=== PATIENT | male | born 1965 | race Caucasian/White ===

== ENCOUNTER 2017-01-04 12:00 | Inpatient (IN) ==
[2017-01-04] MEDS ORDERED: Oxycodone *IR* 5 MG TABLET PO PRN (14:57)
[2017-01-04] MEDS ORDERED: BISACODYL 10 MG SUPPOSITORY RECTALLY PRN (14:57)
--- NOTE | 2017-01-04 15:36 | IRU History & Physical Report ---
HPI IRU Date: Chief complaint: I'm weak HPI: Mr. Pruitt is a 51-year-old white male from [facility]. Referring physician is Dr. John Arndt and his primary care doctor is Dr. Sky Munoz in [place]. His , So, is present in the room during the entire interview and examination. He experienced a respiratory illness on or about 12/13/2016. This consisted of a cough with thick but clear sputum. He had a temperature 100.5 degrees as well as generalized malaise. He was diagnosed with bronchitis and also received an influenza vaccine that day. Over the next several days he continued to feel bad in general. I am not certain if he receive an antibiotic initially or not. Subsequently on 12/20/2016 he felt like his hands were going to sleep. Has a long history of what appears to be carpal tunnel syndrome bilaterally for about 30 years. For this reason he was not too alarmed. The next day on December 21, 2916 he got out of the bed and had the sensation of his feet being numb or tingly. In addition he noted that his tongue was going numb. He did go to work but he continued to have worsening symptoms of numbness and tingling particularly in his tongue and facial area. He then went to his primary care doctor on December 22. He underwent a physical exam and his reflexes were noted to be very good at that time. Seemed to have adequate strength. He was started on an anti-inflammatory medication. Blood work was done demonstrating predominantly elevated liver enzymes but was otherwise normal. On December 23 he was no better. He contacted the nurse to let her know and to check on the lab results. On Tuesday he was moving very slowly and was quite weak. Arrangements were made for a direct admission to medical intensive care unit at [facility] on that date. He was stumbling and had very poor motor control at that time. He did not have any respiratory symptoms at that time with regard to shortness of breath. He was seen by neurology at [place] and differential considerations included Guillain-Vizcaino syndrome, cervical cord lesion or multiple sclerosis. He underwent several procedures including lumbar puncture demonstrating an opening pressure of 13 cm water pressure. The fluid was clear. Gram stain and culture were negative. CSF protein was markedly elevated at 156 and glucose was normal at 72. It is noted that his symptoms seemed to start in the upper extremities prior to the lower extremities. MRI of cervical cord showed degenerative changes only. MRI of brain revealed some chronic ischemic changes. He was diagnosed with brachial pharyngeal Guillain-Vizcaino syndrome. He was treated with 5 days of IVIG completing that on December 29. His blood pressure was elevated. He was started on a low-dose of carvedilol which was subsequently increased. He has had some degree of orthostatic hypotension as well in [place]. Other investigations including a serum protein electrophoresis and urine protein electrophoresis in view of elevated globulins. I do not see results of that in the record from [facility]. He also had a low vitamin D level. At it's worse, he had extremely poor sensation in his mouth and felt like everything he was eating tasted like dirty ocean water. His tongue numbness has improved and is now just present at the tip of the tongue. Also at the worst time, his entire face was "paralyzed." Had normal sensation in his cheeks but simply had poor motor control of his face bilaterally. Left side improved and the right one continues to be weak. In addition, he has had lower extremity weakness, left worse than right in particular he reports reduced dorsiflexion at the ankles compared to plantar flexion. Continues to have subjective feeling of numbness from his knees on down bilaterally. It is noted that he has not been able to completely close his right eye adequately. Initially he could not close either eye but now it is just the right side. While he was receiving his IVIG and IV fluids he had frequency of urination and did not feel like he was emptying out completely. That sensation has resolved. He did have presence of elevated liver transaminases. Sonogram of the liver showed steatosis and sludge in the gallbladder lumen. No stones were seen. Hepatitis B surface antigen, hepatitis A IgM, hepatitis B core antibody and hepatitis C were all negative. HIV was negative as well. He lives at home with his . He does have 2 steps to get into his house. He does not use an assistive device at home prior to this event. Level of functioning prior to the event indicates that he was independent in all parameters. Current level of functioning is as follows: He is supervision level for eating and grooming as well as upper and lower body dressing. Requires minimum assistance for bathing. Requires minimum assistance for toileting. Requires minimum assistance for walking with a rolling walker 200 feet. Requires maximum assistance for stairs. The patient must look at his feet to ambulate adequately. He is using a front-wheeled walker with contact guard assistance but reports that most of his body which is supported by his upper extremities due to numbness in the lower extremities. Left leg and foot is weaker than the right side. The following medical conditions are noted and require active monitoring and/or management: 1. Residual from Guillain-Vizcaino syndrome resulting in high fall risk and risk of urinary retention and respiratory compromise. 2. New diagnosis of labile hypertension with history of orthostatic hypotension. The following therapies will be needed: 1. Physical therapy: for transfers and ambulation and stairs. 2. Occupational therapy: for ADL's and transfers. 3. Medical management: for the above conditions. 4. 24 hour Rehabilitation Nursing to monitor and address the following: Fall risk, monitor blood pressures including orthostatic hypotension, monitor respiratory status 5. Speech therapy eval to assess swallowing PFSH Patient Stated Medical History Constipation No Hx Incontinence No Chemotherapy Yes Other [place] Medical History Updates: Clinical history of bilat carpal tunnel syndrome ( unconfirmed by NCT's). Hyperlipidemia. Benign essential hypertension. Elevated transaminases - ? fatty infiltration of liver Surgical History: 1. Appendectomy 1999. 2. Vasectomy 1998. 3. Third molar extractions Family History: Father is living at age 87. He has history of skin cancer. Has a sister 2 years older with skin cancer. Another sister is 58 years old with thyroid disease, possibly treated with radiation. Another brother has psoriatic arthritis, obesity and hypertension. Patient's mother at age 69 and had rheumatoid arthritis, diabetes and hypertension. 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 He does have children. He is currently employed by [employer]. Review of Systems - Constitutional Constitutional: Present: anorexia (had abnormal taste with resultant anorexia. That is improved.), fever(s) (history of temperature 100.5 with bronchitis.), night sweats, weight loss (he has lost about 20 pounds since admission on 2016). Absent: chills, fatigue, headache(s), lethargy, malaise, weakness, weight gain - EEGAT Eyes: Present: other (has been unable to close right eye completely since this illness. Left eye is improved.). Absent: blurry vision, change in vision, diplopia, photophobia Ears: Present: tinnitus (high-pitched tinnitus noted.) Nose: Present: allergies Mouth/Throat: Present: other (has had numbness of the tongue as well as abnormal sensation on the tongue. Both are improving.). Absent: changes in swallowing, painful swallowing, change in taste, bleeding gums, change in voice - Cardiovascular Cardiovascular: Absent: chest pain, palpitations, syncope, dyspnea on exertion, orthopnea, edema, cyanosis, heart murmur Rhythm: Present: regular rhythm Vascular: Absent: intermittent claudication, pedal edema, unilateral swelling - Respiratory Respiratory: Present: cough (most of his cough has resolved since the bronchitis has resolved.). Absent: dyspnea, hemoptysis, dyspnea on exertion, wheezing, pain on inspiration, chest congestion, excessive phlegm production - Gastrointestinal Gastrointestinal: Present: dyspepsia, nausea (did experience dry heaves with bronchitis.). Absent: abdominal pain, change in bowel habits, constipation, diarrhea, dysphagia, early satiety, hematochezia, melena, vomiting - Genitourinary Genitourinary: Present: urinary frequency (during time of IV fluids.) - Musculoskeletal Musculoskeletal: Present: abnormal gait, muscle weakness (left lower extremity worse than right. Right facial droop worse than left.). Absent: arthralgias, back pain, joint swelling, limited range of motion - Integumentary/Breasts Integumentary: Present: other (patch of psoriasis on back and behind ear). Absent: alopecia, erythema, lesions, pruritus, rash, jaundice - Neurological Neurological: Present: burning sensations, focal weakness (right face, left lower extremity), numbness, paresthesias, weakness. Absent: abnormal gait, abnormal movements, abnormal speech, confusion, convulsions, dizziness, frequent falls, headache(s), loss of vision, memory loss, tremor(s) - Psychiatric Psychiatric: Absent: abnormal sleep pattern, anxiety, depression - Endocrine Endocrine: Absent: cold intolerance, flushing, heat intolerance, palpitations - Hematologic/Lymphatic Hematologic/Lymphatic: Absent: easy bleeding, easy bruising, lymphadenopathy - Allergic/Immunologic Allergic/Immunologic: Absent: urticaria Medications Home Medications Medication Instructions Recorded Confirmed Type Acetaminophen [Tylenol] 650 mg PO Q4H PRN 01/04/17 01/04/17 History Bisacodyl Supp [Dulcolax] 10 mg RECTALLY Q6H PRN 01/04/17 01/04/17 History Carvedilol [Coreg] 1 tab PO BIDWM 01/04/17 01/04/17 History Cholecalciferol (Vitamin D3) 1 cap PO DAILY 01/04/17 01/04/17 History [Vitamin D3] Famotidine [Pepcid] 1 tab PO BID 01/04/17 01/04/17 History Gabapentin [Neurontin] 1 cap PO TID 01/04/17 01/04/17 History Lactulose Oral Liq [Lactulose] 20 gm PO BID 01/04/17 01/04/17 History Oxycodone *IR* [Roxicodone *Ir*] 5 mg PO Q4H PRN 01/04/17 01/04/17 History Allergies Allergy/AdvReac Type Severity Reaction Status Date / Time No Known Allergies Allergy Verified 01/04/17 14:45 Results IRU - Labs Labs: Extensive review of outside records was undertaken. Exam Vital Signs: Temperature 98.4 F 01/04/17 12:41 Pulse Rate 104 H 01/04/17 12:41 Respiratory Rate 20 01/04/17 12:41 Blood Pressure 149/108 H 01/04/17 12:41 Pulse Oximetry 95 01/04/17 12:41 Height/Weight/BMI: Height 1.83 m Weight 122.8 kg - Constitutional Present: no acute distress, well nourished, well developed, obese, cooperative - Routine HEENT Exam Head: Present: normocephalic, atraumatic. Absent: cushingoid faces, abrasion, laceration, hematoma Eye: Present: PERRL. Absent: EOMI (seems to have disconjugate gaze upon testing of extraocular muscles. However denies diplopia. In particular right eye seems to lag left eye on lateral gaze to the right.), conjunctival icterus, scleral injection, periorbital swelling, nystagmus ENT: Present: mucous membranes moist, oropharynx clear - Routine Neck Exam Present: supple, full ROM, trachea midline. Absent: lymphadenopathy, thyromegaly, tenderness, swelling - Routine Chest/Breast/Axilla Exam Chest wall: Absent: tenderness, mass Axillae: Absent: lymphadenopathy, mass - Routine Respiratory Exam Present: CTA bilaterally. Absent: accessory muscle use, decreased breath sounds , prolonged expiratory phase, rales, respiratory distress, rhonchi, stridor, wheezes, crackles, distant breath sounds - Routine Cardiovascular Exam Present: RRR, S1, S2, no murmur. Absent: gallop, S3, S4, click, irregular rhythm - Routine Abdominal Exam Present: soft, normoactive bowel sounds, non distended, non tender. Absent: rebound, guarding, firm, rigid, organomegaly, mass, hernia, wound - Routine Extremities Exam Present: no edema, non tender, pulses intact, normal capillary refill. Absent: cyanosis, clubbing - Routine Back/Spine/Pelvis Exam Back/Spine: Present: full ROM. Absent: scoliosis, kyphosis - Routine Skin Exam Present: intact, dry, warm, rash (psoriatic rash on back and behind ear). Absent: cyanosis, erythema, pallor, mottling, petechiae, urticaria, lesions, jaundice - Routine Neurological Exam Present: alert, oriented X3, CN II-XII intact, motor deficit (slightly reduced dorsiflexion left ankle compared to right. Slightly reduced flexion and left hip compared to right.), moving all extremities, facial asymmetry (right facial droop worse than left. Right eye does not completely close.), normal speech Pinprick exam appears to be normal bilaterally in the upper and lower extremities. Upper extremity strength appears to be normal. - Routine Psychiatric Exam Present: normal affect, normal thought process, cooperative, good insight, good judgment. Absent: depressed, anxious Sepsis Assessment - Evaluation Confirmed Suspected Infection: No SIRS Criteria: none IRU A/P (1) Guillain-Melville syndrome Current visit: Yes Status: Acute Patient has significant residual deficits from his recently diagnosed Guillain- Vizcaino syndrome. He is at risk for falls as well as skin breakdown from immobility, at risk for respiratory decline as well. He will be monitored carefully and a multidisciplinary approach will be undertaken for his recovery. (2) Labile hypertension Current visit: Yes Status: Acute He was recently started on carvedilol. His dose has been increased in [place]. He is at risk for further hypertension or episodes of hypotension which are reported from [place]. DVT Prophylaxis: SCD's, Lovenox Resuscitation Status: Full Code - Course Hospital Course: Tho Wilkins MD: - Interventions to Obtain Goals PT Treatment Plan: Balance/Proprioception, Functional Activities, Gait Training , Patient/Family Education OT Treatment Plan: ADL (Basic Care), Balance Training, Pt./Family Education Goals Progress/Modifications: A multidisciplinary approach will be undertaken for this patient. He'll be seen by physical therapy, occupational therapy and speech therapy for an assessment. He requires 24 rehabilitation nursing to monitor his respiratory status, neurologic status and blood pressures. He will require medical supervision.
[2017-01-04] MEDS: GABAPENTIN 300 MG CAPSULE PO SCH ×2 (16:05→21:14)
--- NOTE | 2017-01-04 16:20 | Consult Note ---
<Mary Zuñiga V - Last Filed: 01/04/17 16:54> Consult Information - Data of Consult Consult date: 01/04/17 Requesting Physician: Tho Wilkins MD Primary Care Provider: Sky Munoz MD Family Provider: Sky Munoz MD - Consult Narrative Reason for consult: Medical manaement HTN, GB History of present illness: Patient is a pleasant 51-year-old male who was recently diagnosed with Kavitha Vizcaino syndrome. Patient initially developed an upper respiratory infection and was seen by his primary care provider on December 13. On 12/20, he began to have numbness in his hands. ON tuesdayDecember 21 he selt numbness and tingling in his bilateral feet. Throughout that day he noticed tingling in his tongue and face. On 12/22/16, he was evaluated by PCP again and noted that refluxes were normal at that time. He had laboratory studies obtained and was started on anti-inflammatory medications. Labs did reveal transaminitis. Throughout 12/23 and 12/24 he continued to feel weak and symptoms did not change and he contacted primary care's office. At that time he was having difficulty with ambulation. Arrangements were made and patient was directly admitted to [facility] ICU for further evaluation and treatment. On December 25 the following work up was performed- MRI of the brain and cervical spine on 12/25 which did reveal degenerative disc disease with moderate neuroforaminal and spinal stenosis. Spinal tap revealing normal opening pressure at 13. Gram stain and culture were negative, CSF protein was elevated at 156 and glucose was normal at 72. Given transaminitis a liver sonogram also was obtained that did show sludge in the gallbladder as well as hepatic steatosis Unfortunately he was diagnosed with brachial pharyngeal Phelps Vizcaino syndrome and underwent 5 day treatment of IVIG from 12/25 through 12/29. He is also been noted to have hypertension throughout this hospital stay and was started on Coreg. [facility] Patient Stated Medical History Brachial pharyngeal Guillain-Vizcaino syndrome Hypertension Hypercholesterolemia Obesity- patient weighed 290 LBS at the beginning of December Medical History Updates: Patient did receive flu vaccine on 12/13/16 Surgical History: Appendectomy. Colonoscopy. Vasectomy Family History: Father-history of skin cancer Mother history of rheumatoid arthritis - Social History Smoking status: Never smoker Substance use type: does not use Alcohol intake frequency: does not drink Housing: house Household members: spouse Current occupational status: employed ([employer]) Social history: Patient is and resides independently at home with . He does have children. He is currently employed by [employer]. Review of Systems All systems PM: 10-point ROS was reviewed, no additional remarkable complaints except - EENMT EENMT Comments: Slurred speech Mild numbness to tip of tongue - Gastrointestinal Gastrointestinal: Present: constipation - Neurological Neurological: Present: numbness (bilateral hand numbness, bilateral lower extremity numbness distally to the knees.), weakness Medications Home Medications Medication Instructions Recorded Confirmed Type Acetaminophen [Tylenol] 650 mg PO Q4H PRN 01/04/17 01/04/17 History Bisacodyl Supp [Dulcolax] 10 mg RECTALLY Q6H PRN 01/04/17 01/04/17 History Carvedilol [Coreg] 1 tab PO BIDWM 01/04/17 01/04/17 History Cholecalciferol (Vitamin D3) 1 cap PO DAILY 01/04/17 01/04/17 History [Vitamin D3] Famotidine [Pepcid] 1 tab PO BID 01/04/17 01/04/17 History Gabapentin [Neurontin] 1 cap PO TID 01/04/17 01/04/17 History Lactulose Oral Liq [Lactulose] 20 gm PO BID 01/04/17 01/04/17 History Oxycodone *IR* [Roxicodone *Ir*] 5 mg PO Q4H PRN 01/04/17 01/04/17 History Allergies Allergy/AdvReac Type Severity Reaction Status Date / Time No Known Allergies Allergy Verified 01/04/17 14:45 Exam Vital Signs: Temperature 98.4 F 01/04/17 12:41 Pulse Rate 104 H 01/04/17 12:41 Respiratory Rate 20 01/04/17 12:41 Blood Pressure 149/108 H 01/04/17 12:41 Pulse Oximetry 95 01/04/17 12:41 Height/Weight/BMI: Height 1.83 m Weight 122.8 kg - Constitutional Present: no acute distress, well nourished, well developed - Routine HEENT Exam Eye: Present: EOMI ENT: Present: mucous membranes moist, dentition normal - Routine Neck Exam Present: full ROM - Routine Respiratory Exam Present: CTA bilaterally. Absent: wheezes - Routine Cardiovascular Exam Present: RRR, S1, S2. Absent: murmur - Routine Abdominal Exam Present: soft, normoactive bowel sounds, non distended. Absent: tenderness - Routine Extremities Exam Present: pulses intact, normal capillary refill - Routine Back/Spine/Pelvis Exam Back/Spine: Present: full ROM - Routine Skin Exam Present: intact, dry, warm - Routine Neurological Exam Present: alert, oriented X3, moving all extremities, vision grossly intact, hearing grossly intact, facial asymmetry Deep tendon reflexes are absent in all 4 extremities - Detailed Neurological Exam Cranial nerves: Normal CN II, Normal CN III, Normal CN IV, Normal CN , Normal CN VIII, Normal CN X (? change in swallow), Normal CN XI, Normal CN XII, Abnormal CN V (Right eye unable to close completely), Abnormal CN VII (Change in taste), Abnormal CN IX (abnormal taste, tongue numbness) Speech: Present: slurred Neuro motor strength exam: RLE 4/5 (bilateral lower extremity strength 4-4), RUE 5/5 (bilateral upper extremity strength 5 out of 5) Sensory: Normal LE 2-point discrimination, Normal lower extremity light touch, Normal lower extremity temperature, Normal UE 2-point discrimination, Normal upper extremity light touch, Normal upper extremity temperature Comments: Patient can distinguish 2 point discrimination to bilateral lower extremities and this does not change distally. Patient feels bilateral lower extremity numbness below the knees, however, does have sensation to light touch. BLE strength equal. - Routine Psychiatric Exam Present: normal affect, cooperative Assessment and Plan (1) Guillain-[place] syndrome Current visit: Yes Status: Acute Assessment and Plan: Impression Brachial pharyngeal Kathryn Vizcaino syndrome S/P- IVIG x5 days Facial muscular nerve with alteration to sensation Persistent weakness Bilateral hands and bilateral distal lower extremity numbness Hypertension Hypercholesterolemia Obesity-recent 20 pound weight loss in the past month Plan Agree with admission to IRU under the care of Dr. Wilkins for ongoing therapy, and strengthening. Medically, we will continue to monitor blood pressure and continue on Coreg 3.125 milligrams twice a day. Patient did have hypertension during his acute medical admission. Continue with Neurontin 300 milligrams 3 times a day to help with neuropathy/ numbness Patient has had difficulty with constipation, continue to utilize lactulose twice a day, and Dulcolax suppositories as needed Lacrilube eye ointment scheduled at at bedtime. Patient does continue to have nonfocal closure of the right eye unless he manually closes it. Recommend utilizing eye moisturizing as needed. Consultations with speech for swallow evaluation. Patient does have some slurred speech on examination along with continued numbness to the tip of this tongue. He continues to have diminished taste. We'll continue to utilize Pepcid twice a day as patient did feel some reflux type sensation Consulted with PT and OT for ongoing strengthening to work on improved function of all 4 extremities. Lovenox subcutaneous daily for DVT prophylaxis Hospital services will continue to follow patient and medical management. His existing comorbidities. At time of discharge medical care will return to his primary care provider. Dr. Sky Munoz in [place] 45 minutes time spent on examination, plan, discussion with Dr Wilkins and attending. Hospital Course Summary Disclaimer: The visit summary below is not to be considered part of the above Progress Note. Hospital Course: 01/04/17 Impression Brachial pharyngeal Kathryn Vizcaino syndrome S/P- IVIG x5 days Facial muscular nerve with alteration to sensation Persistent weakness Bilateral hands and bilateral distal lower extremity numbness Hypertension Hypercholesterolemia Obesity-recent 20 pound weight loss in the past month Plan Agree with admission to IRU under the care of Dr. Wilkins for ongoing therapy, and strengthening. Medically, we will continue to monitor blood pressure and continue on Coreg 3.125 milligrams twice a day. Patient did have hypertension during his acute medical admission. Continue with Neurontin 300 milligrams 3 times a day to help with neuropathy/ numbness Patient has had difficulty with constipation, continue to utilize lactulose twice a day, and Dulcolax suppositories as needed Lacrilube eye ointment scheduled at at bedtime. Patient does continue to have nonfocal closure of the right eye unless he manually closes it. Recommend utilizing eye moisturizing as needed. Consultations with speech for swallow evaluation. Patient does have some slurred speech on examination along with continued numbness to the tip of this tongue. He continues to have diminished taste. We'll continue to utilize Pepcid twice a day as patient did feel some reflux type sensation Consulted with PT and OT for ongoing strengthening to work on improved function of all 4 extremities. Lovenox subcutaneous daily for DVT prophylaxis Hospital services will continue to follow patient and medical management. His existing comorbidities. At time of discharge medical care will return to his primary care provider. Dr. Sky Munoz in [place] 45 minutes time spent on examination, plan, discussion with Dr Wilkins and attending. 01/04/17 16:55 <Jaqueline Walker - Last Filed: 01/04/17 21:21> Consult Information - Data of Consult Requesting Physician: Tho Wilkins MD Primary Care Provider: Sky Munoz MD Family Provider: Sky Munoz MD [facility] Patient Stated Medical History Constipation No Hx Incontinence No Chemotherapy Yes Other [facility] Medical History Guillain-Wanblee syndrome (Acute Medical) Labile hypertension (Acute Medical) Exam Vital Signs: Temperature 98.6 F 01/04/17 16:41 Pulse Rate 99 01/04/17 21:08 Respiratory Rate 18 01/04/17 21:08 Blood Pressure 134/94 H 01/04/17 16:41 Pulse Oximetry 95 01/04/17 21:08 Height/Weight/BMI: Height 1.83 m Weight 122.8 kg Assessment and Plan (1) Guillain-[place]anblee syndrome Current visit: Yes Status: Acute Assessment and Plan: 01/04/2017-I reviewed this chart, the patient history, and the BOTTOM WHEELER's/PA's documented findings as above. We discussed and formulated the assessment and plan as above with the additions below.-Dr. Walker The patient was seen this evening in his room. He was recently diagnosed with Guillain Vizcaino Syndrome. He received IVIG. He was monitored by neurology during his stay at [place]. He developed numbness and weakness in his arms, legs, face and tongue. His numbness and weakness are now improving. He was always able to swallow fairly well. He never required intubation. He did require nocturnal oxygen for a couple of nights. He has not been using it recently. His does think he has sleep apnea and states that he snores very loudly and sometimes gasps for breath. He has never been evaluated for sleep apnea. He was recently diagnosed with elevated blood pressure with this recent illness. Prior to this time his blood pressure at been normal. He states he has had some constipation that did not improve with MiraLAX and has finally improved after lactulose. He states now he is to the point where he has had several loose stools today and would like to hold off on lactulose. On exam the patient is alert and in no acute distress. He has a mild slurred speech. HEENT reveals sclerae to be anicteric and pupils are equal. Oropharynx is moist. Neck is supple. Chest is clear to auscultation. Cardiovascular reveals a regular rate and rhythm. Abdomen is soft and nontender. Extremities are free of edema. Skin is warm and dry and without rashes. On neurologic exam he has difficulty completely closing his eye on the right. He has right facial droop at the mouth. Motor strength in the upper extremities is equal and 4+/5. Motor strength of lower extremities is equal and approximately 4/ 5. Impression and plan Regarding weakness and numbness secondary to Guillain Vizcaino Syndrome-agree with physical therapy and occupational therapy for strengthening. Recommend continuing speech therapy as well. We'll need to monitor closely to make sure her symptoms do not worsen. Agree with gabapentin for neuropathy. The patient states that he is to have a nerve conduction study in a couple of weeks. 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 Regarding possible sleep apnea, will check a nocturnal oximetry tonight. I would highly recommend he see a sleep specialist and have a sleep study after discharge. Regarding recent constipation and now with diarrhea, will change lactulose to when necessary. Will start once daily MiraLAX. Hospital Course Summary Disclaimer: The visit summary below is not to be considered part of the above Progress Note.
--- NOTE | 2017-01-04 17:16 | IRU 24Hr Post Admit Eval ---
24 Hr Post Admission Physical - Relevant Changes Relevant Changes: No Reviewed: I have reviewed the patient's information and concur with the finding and results of the pre-admission screen. Certification: I certify the patient for rehabilitation. - Patient Condition (1) Guillain-[place] syndrome Status: Acute Code(s): G61.0 - Guillain-[place] syndrome Classification: Present on IRF Admission, IRF Tx That Should Address Diagnosis, Diagnosis Requiring Medical Follow Up (2) Labile hypertension Status: Acute Code(s): I10 - Essential (primary) hypertension Classification: Present on IRF Admission, IRF Tx That Should Address Diagnosis, Diagnosis Requiring Medical Follow Up - Prior Functional Status Lives With: Spouse Residence Type: Apartment/Private Home Assitive Devices: None Prior Functional Status: Indep. at home or school, Used no assistive device - Current Functional Status Current Level of Function: Current level of functioning is as follows: He is supervision level for eating and grooming as well as upper and lower body dressing. Requires minimum assistance for bathing. Requires minimum assistance for toileting. Requires minimum assistance for walking with a rolling walker 200 feet. Requires maximum assistance for stairs. The patient must look at his feet to ambulate adequately. He is using a front-wheeled walker with contact guard assistance but reports that most of his body which is supported by his upper extremities due to numbness in the lower extremities. Left leg and foot is weaker than the right side. Failed Alternative Therapy: Arrived from Acute Care Patient Requirements: The patient requires oversight by rehabilitation physician to manage their rehabilitation treatment plan and multidisciplinary approach to care that can only be provided in an IRF and requires a multidisciplinary approach to care, provided by professional PTs, OTs, STs, dieticians, RTs, rehabilitation nurses and is not available in lesser levels of care. Limitations Req: Mobility Impairment, ADL Impairment, Limited Mobility Therapy: The patient is to receive therapy at least 5 days a week. Plan of Care Comment: Physical therapy: 75 minutes 3 days weekly, 90 minutes 2 days weekly. Occupational therapy: 75 minutes 3 days weekly, 90 minutes 2 days weekly. Speech therapy: 30 minutes 3 days weekly - Complications/Comorbidities Impact on Functional Outcomes: It is anticipated that he his muscle weakness from the Guillain-Vizcaino syndrome will negatively impact his functional outcome. Barriers to Discharge: Weakness, Balance, Endurance - Plan to Avoid Complications Plan to Avoid Complications: The patient cannot receive this care in a lesser intensive setting such as Shelter or Outpatient Therapy due to the patient requiring the following : This patient requires a multidisciplinary approach to include speech therapy, occupational therapy and physical therapy to allow him to return to his former level of functioning as rapidly as possible. He requires 24 rehabilitation nursing monitoring to avoid falls, monitor respiratory status and blood pressure. He requires medical supervision in view of his risk for decline from a neurologic standpoint.
[2017-01-04] MEDS: CARVEDILOL 3.125 MG TABLET PO SCH (17:26)
[2017-01-04] MEDS ORDERED: LACTULOSE 20 GM/30 ML ORAL LIQUID PO SCH (21:00)
[2017-01-04] MEDS ORDERED: LACTULOSE 20 GM/30 ML ORAL LIQUID PO PRN (21:13)
[2017-01-04] MEDS: FAMOTIDINE 20 MG TABLET PO SCH (21:14)
[2017-01-04] MEDS: LACRI-LUBE EYE OINT 3.5gm EACH EYE SCH (22:09)
[2017-01-05] MEDS: ENOXAPARIN 40 MG/0.4 ML INJECTION SQ SCH (08:17)
[2017-01-05] MEDS: POLYETHYL GLYCOL 3350 17gm PACKET PO SCH (08:17)
[2017-01-05] MEDS: FAMOTIDINE 20 MG TABLET PO SCH ×2 (08:18→20:08)
[2017-01-05] MEDS: CARVEDILOL 3.125 MG TABLET PO SCH ×2 (08:18→17:51)
[2017-01-05] MEDS: GABAPENTIN 300 MG CAPSULE PO SCH ×3 (08:18→20:08)
--- NOTE | 2017-01-05 11:22 | Progress Note ---
<So Alejandro - Last Filed: 01/05/17 11:19> - Date 01/05/17 Subjective: Patient seen in his room. He is feeling fine. Continues to have numbness from the knees down and from the wrists down. Tip of tongue feels numb. Taste is back to nl. No complaints at this time. Wants to continue to lose weight. He has been intentionally eating less and has lost 30#. Objective Vital signs: Temperature 98.6 F 01/05/17 08:00 Pulse Rate 106 H 01/05/17 09:02 Respiratory Rate 16 01/05/17 08:00 Blood Pressure 145/93 H 01/05/17 08:00 Pulse Oximetry 96 01/05/17 09:02 Height/Weight/BMI: Height 1.83 m Weight 122.8 kg - Constitutional Present: well nourished, well developed - Routine HEENT Exam Head: Present: normocephalic - Routine Respiratory Exam Present: CTA bilaterally. Absent: wheezes - Routine Cardiovascular Exam Present: RRR. Absent: murmur - Routine Abdominal Exam Present: soft, normoactive bowel sounds, non distended. Absent: tenderness - Routine Extremities Exam Present: no edema, normal capillary refill - Routine Skin Exam Present: dry, warm - Routine Neurological Exam Present: alert, oriented X3 paresthesia from knee down and from wrists down. R eye lid doesn't close completely and has mild droop to R side of mouth. Speech is mildly affected. - Routine Lymphatic Exam Lymphatic: Absent: adenopathy - Routine Psychiatric Exam Present: normal affect, cooperative Results - Labs CBC & Chem 7: 01/05/17 05:04 01/05/17 05:04 Assessment and Plan (1) Guillain-Lismore syndrome Current visit: Yes Status: Acute Assessment and Plan: Assessment Brachial pharyngeal Guillain Vizcaino syndrome S/P- IVIG x5 days Facial muscular nerve with alteration to sensation Persistent weakness Bilateral hands and bilateral distal lower extremity numbness Hypertension Hypercholesterolemia Obesity-recent 30 pound weight loss Fatty liver Plan His overnight oximetry was normal. He plans to f-u with neuro after d/c for EMG. He plans to f-u with GI re: fatty liver after d/c. Will continue to work on weight loss. Labs today were essentially normal. Hospital Course Summary Disclaimer: The visit summary below is not to be considered part of the above Progress Note. Hospital Course: 01/04/17 Impression Brachial pharyngeal Kathryn Vizcaino syndrome S/P- IVIG x5 days Facial muscular nerve with alteration to sensation Persistent weakness Bilateral hands and bilateral distal lower extremity numbness Hypertension Hypercholesterolemia Obesity-recent 20 pound weight loss in the past month Plan Agree with admission to IRU under the care of Dr. Wilkins for ongoing therapy, and strengthening. Medically, we will continue to monitor blood pressure and continue on Coreg 3.125 milligrams twice a day. Patient did have hypertension during his acute medical admission. Continue with Neurontin 300 milligrams 3 times a day to help with neuropathy/ numbness Patient has had difficulty with constipation, continue to utilize lactulose twice a day, and Dulcolax suppositories as needed Lacrilube eye ointment scheduled at at bedtime. Patient does continue to have nonfocal closure of the right eye unless he manually closes it. Recommend utilizing eye moisturizing as needed. Consultations with speech for swallow evaluation. Patient does have some slurred speech on examination along with continued numbness to the tip of this tongue. He continues to have diminished taste. We'll continue to utilize Pepcid twice a day as patient did feel some reflux type sensation Consulted with PT and OT for ongoing strengthening to work on improved function of all 4 extremities. Lovenox subcutaneous daily for DVT prophylaxis Hospital services will continue to follow patient and medical management. His existing comorbidities. At time of discharge medical care will return to his primary care provider. Dr. Sky Munoz in [place] 45 minutes time spent on examination, plan, discussion with Dr Wilkins and attending. 01/04/17 16:55 <Jaqueline Walker L - Last Filed: 01/05/17 19:39> - Date 01/05/17 Objective Vital signs: Temperature 98.0 F 01/05/17 15:07 Pulse Rate 91 01/05/17 15:07 Respiratory Rate 16 01/05/17 15:07 Blood Pressure 142/96 H 01/05/17 15:07 Pulse Oximetry 94 01/05/17 15:07 Height/Weight/BMI: Height 1.83 m Weight 121.6 kg Results - Labs CBC & Chem 7: 01/05/17 05:04 01/05/17 05:04 Assessment and Plan (1) Guillain-Lismore syndrome Current visit: Yes Status: Acute Assessment and Plan: 01/05/2017-I reviewed this chart, the patient history, and the JUDGE'S CLERK's/PA's documented findings as above. We discussed and formulated the assessment and plan as above with the additions below.-Dr. Walker Patient was seen this evening in his room. He was accompanied by his . He thinks his arm strength is getting better every day. His leg strength is improving as well. He has no new numbness. He is swallowing well. He is breathing well. He did not have a bowel movement today. On exam he is alert and in no acute distress. No change in neurologic exam. Chest is clear to auscultation. Cardio vascular reveals a regular rate and rhythm. Abdomen is soft and nontender. Extremities are free of edema. He has some mild folliculitis on both of his feet- Overnight oximetry revealed that he was less than 89% for at least 30 minutes. He had approximately 7.6 events per hour. Will start on 1 L per nasal cannula and check nocturnal oximetry again tonight. Impression and plan GBS is slowly improving. Continue with physical therapy. Neurologic symptoms are slowly improving. Probable obstructive sleep apnea. Start 1 L per nasal cannula at night. Check nocturnal oximetry again on 1 L. The patient will need a sleep study as an outpatient. Hospital Course Summary Disclaimer: The visit summary below is not to be considered part of the above Progress Note.
[2017-01-05] MEDS: LACRI-LUBE EYE OINT 3.5gm EACH EYE SCH (23:28)
[2017-01-06] MEDS: POLYETHYL GLYCOL 3350 17gm PACKET PO SCH (08:24)
[2017-01-06] MEDS: ENOXAPARIN 40 MG/0.4 ML INJECTION SQ SCH (08:24)
[2017-01-06] MEDS: FAMOTIDINE 20 MG TABLET PO SCH ×2 (08:24→22:06)
[2017-01-06] MEDS: CARVEDILOL 3.125 MG TABLET PO SCH (08:24)
[2017-01-06] MEDS: GABAPENTIN 300 MG CAPSULE PO SCH ×3 (10:00→22:06)
[2017-01-06] MEDS ORDERED: LACRI-LUBE EYE OINT 3.5gm RIGHT EYE SCH (13:44)
--- NOTE | 2017-01-06 13:48 | IRU Progress Note ---
- Subjective/Serverity of Illness Date: 01/06/17 Don is improving with regard to therapy. He has less knee locking as he walks. Formerly he was indicating he was bearing most of his weight on his arms and on the walker rather than on his legs. He states that has improved. He denies any chest pain. He reports his appetite is good. He has been seen by therapies. Speech therapy will continue to work with him with regard to strengthening and swallowing precautions etc. His blood pressures running a bit on the high side. He was started on carvedilol in [place] and remains on that at the present time. He remains on a low-dose and his pulse remains elevated at times. We'll increase this to 6.25 mg twice daily. Reports that he has not had a bowel movement since early on in his stay here. Has Dulcolax ordered as needed as well as MiraLAX on a regular basis. Also has lactulose twice daily as needed but he has not received that. We will make that scheduled twice daily.. Exam Vital Signs: Temperature 98.1 F 01/06/17 07:00 Pulse Rate 132 H 01/06/17 07:00 Respiratory Rate 18 01/06/17 07:00 Blood Pressure 143/102 H 01/06/17 07:00 Pulse Oximetry 99 01/06/17 07:00 Height/Weight/BMI: Height 1.83 m Weight 121.6 kg Comments: The patient is awake, alert and oriented and in no acute distress. Pupils are equal. The neck is supple. Chest: Clear to auscultation bilaterally. Cor: RR with no gallop, click nor murmur Abd: soft with normo-active bowel sounds. There are no masses, no tenderness and no guarding. Extremities: No edema is noted. Neurologic: Upper extremity strength appears to be very good. The specimen improvement in his right facial weakness and droop. Still cannot completely close his right eye. Can close the left eye and he would prefer not to use Lacri -Lube on the left side.. 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 He is being seen by speech therapy, physical therapy and occupational therapy. Improvement is noted. (2) Labile hypertension Current visit: Yes Status: Acute Blood pressure is running a bit on the high side. He is on a low-dose of carvedilol. We'll increase to 6.25 mg twice daily. (3) Constipation by delayed colonic transit Current visit: Yes Status: Acute Increase lactulose to twice daily on a routine basis. DVT Prophylaxis: SCD's, Lovenox Resuscitation Status: Full Code - Course Hospital Course: Tho Wilkins MD: 01/06/17 13:51 He is progressing with therapy. Decrease Lacri-Lube to one eye only (right eye) Increase lactulose to twice daily due to constipation. Increase carvedilol due to BP - Interventions to Obtain Goals PT Treatment Plan: Balance/Proprioception, Functional Activities, Gait Training , Patient/Family Education OT Treatment Plan: ADL (Basic Care), Balance Training, Pt./Family Education Goals Progress/Modifications: Time spent with patient and on floor reviewing data and documentin min Barriers to dismissal: Lower extremity strength, endurance, balance Medical decision-making: Blood pressures are running a bit high so we will increase carvedilol to 6.25 mg twice daily. He is constipated so we will make lactulose twice daily on a regular basis. We will discontinue Lacri-Lube in the left eye but continued in the right eye.
--- NOTE | 2017-01-06 14:06 | IRU Plan of Care ---
U Overall Plan of Care - Date Date: 01/06/17 - Patient Impairments (1) Guillain-[place] syndrome Code(s): G61.0 - Guillain-[place] syndrome Status: Acute Classification: Present on IRF Admission, IRF Tx That Should Address Diagnosis, Diagnosis Requiring Medical Follow Up (2) Labile hypertension Code(s): I10 - Essential (primary) hypertension Status: Acute Classification: Present on IRF Admission, IRF Tx That Should Address Diagnosis, Diagnosis Requiring Medical Follow Up (3) Constipation by delayed colonic transit Code(s): K59.01 - Slow transit constipation Status: Acute Classification: Present on IRF Admission, IRF Tx That Should Address Diagnosis - Relevant Changes Relevant Changes: No Reviewed: I have reviewed the patient's information and concur with the finding and results of the pre-admission screen. Certification: I certify the patient for rehabilitation. 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 An individualized overall plan of care has been developed after careful review of the patient's preadmission screening, post admission physician evaluation and assessments of all therapy disciplines and/or other pertinent clinicians involved in treating the patient. This indicates medical necessity and rehabilitation necessity have been established through a thorough review of all available medical information. Strength Deficits: Left Lower Extremity - Current Functional Status Failed Alternative Therapy: Arrived from Acute Care Patient Requires: The patient requires oversight by rehabilitation physician to manage their rehabilitation treatment plan and multidisciplinary approach to care that can only be provided in an IRF and requires a multidisciplinary approach to care, provided by professional PTs, OTs, STs, rehabilitation nurses, and may require STs, dieticians, and RTS. This is not available in lesser levels of care. Therapy: The patient is to receive therapy at least [address] Treatment Plan: Swallow Retraining/Exercises, Swallow Precautions, Oral Motor Exercise, Breathing Exercises ST Treatment Plan Duration: Two Weeks ST Treatment Plan Frequency: Three Times Per Week Plan of Care Comment: Physical therapy: 75 minutes 3 days weekly, 90 minutes 2 days weekly. Occupational therapy: 75 minutes 3 days weekly, 90 minutes 2 days weekly. Speech therapy: 30 minutes 3 days weekly - Anticipated LOS/Outcomes Anticipated Functional Outcome: Expected functional improvements include: -- Modified independant to independant ambulation with or without assistive device -- Modified independant to independant ADL's with or without assistive device -- Return to pre-morbid level of mobility -- Maximize level of mobility and ADL's to decrease burden on any caregiver involved with this patient's care Anticipated Length of Stay (days): 10 Anticipated DC Destination: Home, Self Residential Safety Plan: The patient will be provided with the development of a Home Safety Plan for return to a home or home-like environment and and to ensure safety post discharge. - Plan to Avoid Complications Barriers to Attaining Goals: Weakness, Balance, Endurance Plan to Avoid Complications: The patient cannot receive this care in a lesser intensive setting such as Senior Care or Outpatient Therapy due to the patient requiring the following : Close monitoring for neurologic decline, respiratory difficulty, blood pressure control. Because the complex nature of his condition, a multidisciplinary approach is required .
[2017-01-06] MEDS: CARVEDILOL 6.25 MG TABLET PO SCH (17:34)
[2017-01-06] MEDS: LACTULOSE 20 GM/30 ML ORAL LIQUID PO SCH (22:07)
[2017-01-07] MEDS: CARVEDILOL 6.25 MG TABLET PO SCH ×2 (07:44→17:58)
--- NOTE | 2017-01-07 08:33 | Progress Note ---
- Date 01/07/17 Subjective: Zack is doing better. His strength has returned. He still has numbness to has hands and feet, but fine motor in his hands has improved a lot, and he's able to grasp and manipulate small objects. His tongue is back to normal. He's able to close his eyes completely and didn't need any extra moisturizer last night - his eyes aren't feeling dried out this am. He feels like his face is "waking up ", and he's able to use more expression. He still has "noodle legs", and is working with PT to improve the muscular strength around his knees. He denies any SOA, fever, cough/congestion, abd pain or GI complaints. No dysphagia. Objective Vital signs: Temperature 97.8 F 01/07/17 07:26 Pulse Rate 84 01/07/17 07:26 Respiratory Rate 16 01/07/17 07:26 Blood Pressure 142/92 H 01/07/17 07:26 Pulse Oximetry 95 01/06/17 20:39 Height/Weight/BMI: Height 1.83 m Weight 121.2 kg - Constitutional Present: no acute distress, well nourished, well developed, obese - Routine HEENT Exam Head: Present: normocephalic Eye: Present: PERRL. Absent: conjunctival icterus, scleral injection ENT: Present: mucous membranes moist, oropharynx clear - Routine Respiratory Exam Present: CTA bilaterally - Routine Cardiovascular Exam Present: RRR, S1, S2 - Routine Abdominal Exam Present: soft, normoactive bowel sounds, non tender - Routine Extremities Exam Present: no edema - Routine Musculoskeletal Exam Musculoskeletal: Present: moving extremities well - Routine Skin Exam Present: intact, dry, warm - Routine Neurological Exam Present: alert, oriented X3, normal speech. Absent: CN II-XII intact (mild right facial droop) - Routine Psychiatric Exam Present: normal affect, normal thought process, cooperative Results - Labs CBC & Chem 7: 01/05/17 05:04 01/05/17 05:04 Assessment and Plan (1) Guillain-[place] syndrome Current visit: Yes Status: Acute Assessment and Plan: Assessment : Brachial pharyngeal Guillain Vizcaino syndrome, S/P- IVIG x5 days Facial muscular nerve with alteration to sensation - improving Persistent weakness - improving Bilateral hands and bilateral distal lower extremity numbness - improving Hypertension Hypercholesterolemia Obesity-recent 30 pound weight loss Fatty liver Plan Neuro improvement noted - tongue numbness resolved; speech normal; distal paresthesias affecting hands/feet primarily now. BP still elevated fairly persistently 140/90s - Coreg was just increased yesterday evening - monitor response. Sleep study as outpatient. May need nocturnal O2 at time of dc. DVT Prophylaxis: Lovenox GI Prophylaxis: Pepcid Resuscitation Status: Full Code Hospital Course Summary Disclaimer: The visit summary below is not to be considered part of the above Progress Note. Hospital Course: 01/04/17 Impression Brachial pharyngeal [place] Vizcaino syndrome S/P- IVIG x5 days Facial muscular nerve with alteration to sensation Persistent weakness Bilateral hands and bilateral distal lower extremity numbness Hypertension Hypercholesterolemia Obesity-recent 20 pound weight loss in the past month Plan Agree with admission to IRU under the care of Dr. Wilkins for ongoing therapy, and strengthening. Medically, we will continue to monitor blood pressure and continue on Coreg 3.125 milligrams twice a day. Patient did have hypertension during his acute medical admission. Continue with Neurontin 300 milligrams 3 times a day to help with neuropathy/ numbness Patient has had difficulty with constipation, continue to utilize lactulose twice a day, and Dulcolax suppositories as needed Lacrilube eye ointment scheduled at at bedtime. Patient does continue to have nonfocal closure of the right eye unless he manually closes it. Recommend utilizing eye moisturizing as needed. Consultations with speech for swallow evaluation. Patient does have some slurred speech on examination along with continued numbness to the tip of this tongue. He continues to have diminished taste. We'll continue to utilize Pepcid twice a day as patient did feel some reflux type sensation Consulted with PT and OT for ongoing strengthening to work on improved function of all 4 extremities. Lovenox subcutaneous daily for DVT prophylaxis At time of discharge medical care will return to his primary care provider. Dr. Sky Munoz in [place] 01/07/17 Neuro improvement noted - tongue numbness resolved; speech normal; distal paresthesias affecting hands/feet primarily now. BP still elevated fairly persistently 140/90s - Coreg was just increased yesterday evening - monitor response. Sleep study as outpatient. May need nocturnal O2 at time of dc.
[2017-01-07] MEDS: FAMOTIDINE 20 MG TABLET PO SCH ×2 (08:38→20:32)
[2017-01-07] MEDS: GABAPENTIN 300 MG CAPSULE PO SCH ×3 (08:38→20:32)
[2017-01-07] MEDS: POLYETHYL GLYCOL 3350 17gm PACKET PO SCH (08:38)
[2017-01-07] MEDS: ENOXAPARIN 40 MG/0.4 ML INJECTION SQ SCH (08:38)
[2017-01-07] MEDS: LACTULOSE 20 GM/30 ML ORAL LIQUID PO SCH ×2 (10:46→20:32)
--- NOTE | 2017-01-07 11:38 | IRU Progress Note ---
- Subjective/Serverity of Illness Date: 01/07/17 Zack was evaluated in his room on inpatient rehabilitation. He continues to progress with therapy he is getting stronger and feels as though he is as well. He did start to have some bowel movements which is an improvement. He has been increased on his lactulose to twice a day on a regular basis. States that he is working on core body strengthening. He did point out a ventral hernia previously which I assured him was not a major problem at this time. It is nonpainful. Continues to have numbness of both hands up to the wrists. Previously his carpal tunnel was characterized by numbness of the forefinger and long finger of each hand. It would occur only with overuse but at present has numbness of both hands which likely is more consistent with his Guillain-Vizcaino. Continues to have evidence of right facial droop. Again it appears to be a bit less but still is certainly present. He is working on ambulation and is trying to avoid hyperextension of the knees which was a compensatory mechanism. Reports a good appetite. He is trying to work on reduced intake. Denies any chest pain or shortness of breath. No urinary symptoms currently reported. We did increase his carvedilol yesterday and his blood pressures are indeed improved. He discussed with me his need for nerve conduction tests and follow-up with neurology as an outpatient. He does not have a preference as to which neurologist she sees. Exam Vital Signs: Temperature 97.8 F 01/07/17 07:26 Pulse Rate 84 01/07/17 07:26 Respiratory Rate 16 01/07/17 07:26 Blood Pressure 142/92 H 01/07/17 07:26 Pulse Oximetry 95 01/06/17 20:39 Height/Weight/BMI: Height 1.83 m Weight 121.2 kg Comments: The patient is awake, alert and oriented and in no acute distress. Neurologic: Has reduced extension ability for his 4 fingers bilaterally. Has good strength bilaterally as well as good flexion and extension at the elbows. Moderately reduced strength for dorsiflexion at both wrists. Right face droop again identified. Pupils are equal. Using Lacri-Lube in right eye only at night. The neck is supple. Chest: Clear to auscultation bilaterally. Cor: RR with no gallop, click nor murmur Abd: soft with normo-active bowel sounds. There are no masses, no tenderness and no guarding. Extremities: No edema is noted. IRU A/P (1) Guillain-[place] syndrome Current visit: Yes Status: Acute Continues to struggle with residual from Guillain-Vizcaino syndrome. In particular , has weakness of left lower extremity and right upper extremity. Has numbness to both hands from the wrists on out. In addition, has right facial droop. He is improving with regard to therapy and strengthening. Working on core body strengthening. (2) Labile hypertension Current visit: Yes Status: Acute Blood pressure improved on slightly higher dose of carvedilol. He is now 6.25 mg twice daily. Tolerating this well. Pressures are better. (3) Constipation by delayed colonic transit Current visit: Yes Status: Acute Bowels have improved output since the use of lactulose twice daily on a regular basis. DVT Prophylaxis: Lovenox Resuscitation Status: Full Code - Course Hospital Course: Tho Wilkins MD: 01/06/17 13:51 He is progressing with therapy. Decrease Lacri-Lube to one eye only (right eye) Increase lactulose to twice daily due to constipation. Increase carvedilol due to BP 01/07/17 11:41 Continues to have numbness/tingling of both hands from the wrists on out. Right face droop about the same. Final motor movement is challenging but improving. Blood pressures are improved. Having bowel movements. - Interventions to Obtain Goals PT Treatment Plan: Balance/Proprioception, Functional Activities, Gait Training , Patient/Family Education OT Treatment Plan: ADL (Basic Care), Balance Training, Pt./Family Education Goals Progress/Modifications: Time spent with patient and on floor reviewing data and documentin min Barriers to dismissal: Core body strengthening, lower extremity weakness, balance Medical decision-making: At the present time his blood pressures are improved on the higher dose of carvedilol. Continue this at present. Bowels are moving. Has not demonstrated neurologic decline. Have reviewed his overall situation and we will continue with therapy.
[2017-01-07] MEDS ORDERED: LACRI-LUBE EYE OINT 3.5gm EACH EYE PRN (13:12)
--- NOTE | 2017-01-07 13:17 | IRU Team Meeting ---
IRU Team Meeting - Nursing Bladder Management Level of Assist: Minimal Assistance Bladder Frequency of Accidents: No accidents Bowel Assistive Devices Utilized:: Medication Bowel Management Level of Assist: Minimal Assistance Bowel Frequency of Accidents: No accidents Vital Signs: Vital Signs - 24 hr 01/06/17 15:00 01/06/17 20:39 01/07/17 07:26 Temperature 98.0 F 98.1 F 97.8 F Pulse Rate 80 82 84 Respiratory Rate 20 18 16 Blood Pressure 140/97 H 137/95 H 142/92 H Pulse Oximetry 96 95 Current Medications: Acetaminophen (Tylenol) 650 mg PO Q4H PRN PRN Reason: Pain Bisacodyl (Dulcolax) 10 mg RECTALLY Q6H PRN PRN Reason: Constipation Carvedilol (Coreg) 6.25 mg PO BIDWM [facility] Last Admin: 01/07/17 07:44 Dose: 6.25 mg Cholecalciferol (Vit. D-3) 5,000 unit PO DAILY [facility] Last Admin: 01/07/17 08:38 Dose: 5,000 unit Enoxaparin Sodium (Lovenox) 40 mg SQ DAILY [facility] Last Admin: 01/07/17 08:38 Dose: 40 mg Famotidine (Pepcid) 20 mg PO BID [facility] Last Admin: 01/07/17 08:38 Dose: 20 mg Gabapentin (Neurontin) 300 mg PO TID [facility] Last Admin: 01/07/17 08:38 Dose: 300 mg Lactulose (Lactulose) 20 gm PO BID [facility] Last Admin: 01/07/17 10:46 Dose: 20 gm Multi-Ingredient Lotion (Lacrilube) 1 applic EACH EYE HS PRN PRN Reason: Dry eyes Polyethylene Glycol (Miralax) 17 gm PO DAILY [facility] Last Admin: 01/07/17 08:38 Dose: 17 gm Current Medical Issues: numbness and weakness secondary to Guillain-Vizcaino syndrome, benign essential hypertension Comments: I certify that I personally led the interdisciplinary team meeting and agree with comments, barriers and goals indicated. Team meeting was held in the patient's room with the patient and the following family members present: patient's spouse, patient's son Don is ambulating better and able to transfer more easily. Continues to complain of numbness and tingling from the wrists on out. Carvedilol was recently increased to 6.25 mg twice daily. Blood pressures are improved but not yet fully controlled. Continues to have a good appetite. He is starting have bowel movements. Lactulose was changed from as needed to scheduled twice daily. - Speech Therapy Patient is working with speech therapy and making progress. He is working on oral/lingual/cheek strengthening and safety. - Physical Therapy Bed, Chair, Wheelchair Transfer Assist: Stand By Assist/Supervision Ambulation Ability: Stand By Assist/Supervision Ambulation Distance: 250 Stair Climbing Ability: Stand By Assist/Supervision Number of Steps Climbed: 12 Car Transfer Ability: Stand By Assist/Supervision Comments: He currently is standby assist with all physical therapy activities. He is working on avoiding hyperextension of the knee as well as working on core strengthening. - Occupational Therapy Eating Ability: Independent Grooming Ability: Modified Independent Bathing Ability: Stand By Assist/Supervision Upper Body Dressing Ability: Independent Lower Body Dressing Ability: Stand By Assist/Supervision Tub Transfer Assist: Minimal Assistance Toileting Assist: Modified Independent Toilet Transfer Assist: Modified Independent Comments: He has made good progress with occupational therapy as well. He would benefit from a tub bench to improve safety for buckling of both lower extremities when stepping out of the tub. Working on IADLs. Also working on improving standing balance without upper extremity support. Continues to improve. - Goals Physical Therapy Goals: 01/07/17 Goals: 1.) Mod I with amb and transfers Occupational Therapy Goals: OT goals 01/07: 1.) LB dressing w/ mod I. 2.) Tub transfer w/ mod I. 3.) Vaccum w/ mod I. - Barriers to Discharge Barriers to Attaining Goals: Other (confidence, home modifications) - Care Plan Anticipated Length of Stay (days): 4 Anticipated DC Destination: Home, Self Care I have led this team conference and agree with the plan.
--- NOTE | 2017-01-07 16:31 | Letter to Referring Physician ---
Dear Dr. Munoz, This is a brief note to bring you up-to-date on the status of Bob Pruitt and his stay on the acute inpatient rehabilitation unit at [facility]. As you are likely aware, this patient was admitted to the [facility] on December 24 for Guillain-[place] Syndrome. They were stabilized while on the acute level and admitted to inpatient rehabilitation unit and [facility] on January 04, 2017. While on inpatient rehabilitation, this patient was seen by occupational therapy and physical therapy and improved overall in their functional ability. In addition we monitored his blood pressure while on the rehabilitation unit. It continues to be a bit borderline high. He is on carvedilol 6.25 mg twice daily. Please see a copy of the history and physical examination as well as discharge summary which will subsequently be sent. We do recommend that the patient see you in follow up for his blood pressure as well as for the numbness and weakness. He will need outpatient PT and OT arranged in [place]. We have requested an appointment with Richard Lilly MD, neurologist in [place] for follow up and NCT's. We are awaiting that appointment request and we will contact the patient when that has been communicated to us. Thank you for allowing us to be involved in this nice patient's care. Please contact me directly should you have any questions regarding their stay on the inpatient rehabilitation unit.. Sincerely, Tho Wilkins M.D.
[2017-01-07] MEDS: ACETAMINOPHEN 325 MG TABLET PO PRN (20:32)
[2017-01-08] MEDS: ACETAMINOPHEN 325 MG TABLET PO PRN (08:15)
[2017-01-08] MEDS: GABAPENTIN 300 MG CAPSULE PO SCH ×3 (08:16→20:33)
[2017-01-08] MEDS: ENOXAPARIN 40 MG/0.4 ML INJECTION SQ SCH (08:16)
[2017-01-08] MEDS: CARVEDILOL 6.25 MG TABLET PO SCH ×2 (08:16→16:37)
[2017-01-08] MEDS: FAMOTIDINE 20 MG TABLET PO SCH ×2 (08:16→20:33)
[2017-01-08] MEDS: POLYETHYL GLYCOL 3350 17gm PACKET PO SCH (08:16)
[2017-01-08] MEDS: LACTULOSE 20 GM/30 ML ORAL LIQUID PO SCH ×2 (08:17→20:34)
[2017-01-08 18:33] VITALS: RESP 16
[2017-01-09] MEDS: ACETAMINOPHEN 325 MG TABLET PO PRN (02:03)
[2017-01-09 08:24] VITALS: BP 145/101; PULSE 76; TEMP 97.8; O2SAT 99
[2017-01-09] MEDS: ENOXAPARIN 40 MG/0.4 ML INJECTION SQ SCH (08:40)
[2017-01-09] MEDS: CARVEDILOL 6.25 MG TABLET PO SCH (08:40)
[2017-01-09] MEDS: FAMOTIDINE 20 MG TABLET PO SCH (08:40)
[2017-01-09] MEDS: GABAPENTIN 300 MG CAPSULE PO SCH (08:40)
[2017-01-09] MEDS: LACTULOSE 20 GM/30 ML ORAL LIQUID PO SCH (08:41)
[2017-01-09] MEDS: POLYETHYL GLYCOL 3350 17gm PACKET PO SCH (08:41)
--- NOTE | 2017-01-10 11:03 | Discharge Summary ---
Discharge Information Date of admission: 01/04/17 12:19 Anticipated date of discharge: 01/09/17 Attending Physician: Tho Wilkins MD Primary care physician: Sky Munoz MD Consults: 01/04/17 14:56 Physician Consult [CONS] Routine Consulting Provider: Jaqueline Walker Reason For Exam: medical management Ordering Provider has Notified Haircutter: No 01/06/17 05:07 Case Management Consult [CONS] Routine Reason For Exam: NOC OX STUDY - Discharge Diagnosis (1) Guillain-Montrose syndrome Status: Acute (2) Labile hypertension Status: Acute (3) Constipation by delayed colonic transit Status: Acute 1. Brachial-pharyngeal Guillain-Montrose Syndrome 2. Hypertension - Laboratory Labs: 01/05/17 05:04 01/05/17 05:04 History of Present Illness HPI: 01/10/17 11:00 Mr. Pruitt is a 51-year-old gentleman from [facility] whose primary care physician is Dr. Sky Munoz. He developed an upper respiratory infection and ultimately developed worsening numbness, tingling and weakness of the extremities starting in the upper extremities. He deteriorated and ultimately was transferred to [facility] on 12/24/2016. He did not require mechanical ventilation but was diagnosed with brachial pharyngeal Guillain Montrose syndrome. Also he was noted to have steatosis with fatty infiltration of the liver identified on sonogram and negative hepatitis studies. His blood pressure was also labile and he was started on carvedilol in [place]. He was stabilized at [place] and ultimately transferred to inpatient rehabilitation at [facility] for an intensive, individualized multidisciplinary approach to his recovery of his functional deficits. Hospital Course This is a general summary of the patient's hospital course. For more details refer to the complete medical record. Zack was very motivated and worked hard while on the rehabilitation unit. He was also followed by the hospitalist service. His blood pressures remained elevated and his carvedilol was increased to 6.25 mg twice daily with food. He was also placed on gabapentin but he did not feel as though that really helped his numbness/tingling/pain very much. He did not require other pain medications while on rehabilitation. From an occupational therapy standpoint, eating was performed with independent functioning upon admission and dismissal. Grooming was initially contact-guard assistance and ultimately independent functioning. He was able to bathe with minimal assistance initially and ultimately required only nurse supervision. Upper body dressing initially with standby assistance and ultimately modified independent functioning. Lower body dressing was initially contact-guard assistance and ultimately modified independent. Toileting assistance with standby assistance initially and ultimately modified independent. Toilet transfer assistance was initially contact-guard and ultimately modified independent. Bed/chair/wheelchair transfers for occupational therapy were performed with modified independent level of functioning. He was also seen by physical therapy. He was standby assistance upon admission and dismissal for bed/chair/wheelchair transfers from a physical therapy standpoint. He was independent for toilet assist. He was contact-guard assistance for toilet transfer assistance. Car transfers were performed with contact-guard assistance initially and modified independent functioning ultimately. His ablating ability was with contact-guard assistance at 266 feet upon admission. He was standby assistance of 1 person with a walker at 430 feet upon dismissal. He was able to climb 12 stairs with contact-guard assistance initially and now twice standby assistance. His blood pressures were monitored and, as noted, carvedilol was increased from his initial dose. We did give him a prescription for gabapentin to go home with if he wanted this but it was not clear that this is terribly beneficial. His appetite was good. He did have some constipation but that improved with the use of MiraLAX and ultimately lactulose as well. While in [place], it was recommended that the patient undergo follow-up for possible sleep study. This information is being relayed to his personal physician Dr. Munoz via letter for his decision in this regard. We did refer him to neurology in [place] for follow-up nerve conduction tests/ EMGs as indicated in a couple of weeks. At the time of dismissal he is stable and able to eat and drink adequately. He will require continued outpatient physical therapy and occupational therapy to improve balance and core strength and ultimately to return to his work. He continues to have a slight right facial droop but this is improving. He was seen by speech therapy as well and given exercises with regard to strengthening of the tongue and cheeks. He was felt to be safe to swallow a regular diet. 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 Wilkins for ongoing therapy, and strengthening. Medically, we will continue to monitor blood pressure and continue on Coreg 3.125 milligrams twice a day. Patient did have hypertension during his acute medical admission. Continue with Neurontin 300 milligrams 3 times a day to help with neuropathy/ numbness Patient has had difficulty with constipation, continue to utilize lactulose twice a day, and Dulcolax suppositories as needed Lacrilube eye ointment scheduled at at bedtime. Patient does continue to have nonfocal closure of the right eye unless he manually closes it. Recommend utilizing eye moisturizing as needed. Consultations with speech for swallow evaluation. Patient does have some slurred speech on examination along with continued numbness to the tip of this tongue. He continues to have diminished taste. We'll continue to utilize Pepcid twice a day as patient did feel some reflux type sensation Consulted with PT and OT for ongoing strengthening to work on improved function of all 4 extremities. Lovenox subcutaneous daily for DVT prophylaxis At time of discharge medical care will return to his primary care provider. Dr. Sky Munoz in [place] 01/07/17 Neuro improvement noted - tongue numbness resolved; speech normal; distal paresthesias affecting hands/feet primarily now. BP still elevated fairly persistently 140/90s - Coreg was just increased yesterday evening - monitor response. Sleep study as outpatient. May need nocturnal O2 at time of dc. Time spent with patient: 25 - 35 minutes Discharge Plan - Med Rec/Dispo Referrals/Follow Up: Sky Munoz MD [Family Provider] - (Dr. Adeola Munoz on 01/17/17 at 11:00 am for Hosp. follow-up. [phone] [place] [id number]) Kayla Instructions: Guillain-Montrose Syndrome (DC) Prescriptions: New Gabapentin [Neurontin] 300 mg PO TID #90 cap PEG 3350 17gm PACKET [Miralax] 17 gm PO DAILY packet Continue Acetaminophen [Tylenol] 650 mg PO Q4H PRN PRN Reason: Pain Carvedilol [Coreg] 1 tab PO BIDWM #60 tab Discontinued Famotidine [Pepcid] 1 tab PO BID Lactulose Oral Liq [Lactulose] 20 gm PO BID Bisacodyl Supp [Dulcolax] 10 mg RECTALLY Q6H PRN PRN Reason: Constipation Oxycodone *IR* [Roxicodone *Ir*] 5 mg PO Q4H PRN PRN Reason: Pain Cholecalciferol (Vitamin D3) [Vitamin D3] 1 cap PO DAILY Gabapentin [Neurontin] 1 cap PO TID - Disposition 01 Discharged Home, Self-Care - Dismissal Complete Discharge Instructions are:: Complete
== END 2017-01-09 11:20 | disposition home or self-care (01) | DRG 74 ==
PROVIDERS: ADMIT Internal Medicine; ATTEND Internal Medicine